=== PATIENT | male | born 1995 | race African-American/Black ===

== ENCOUNTER 2022-01-19 11:24 | Emergency (ER) | payer BC, OTHER ==
[~2022-01-19] VITALS: Ht 177.8 cm; Wt 111.1 kg
[~2022-01-19 11:24] MED LIST: DIPH1CRE; DIPH25TA26
[2022-01-19] MEDS ORDERED: KETOROLAC TROMETH 60MG/2ML VIAL IM ONE (13:00)
[2022-01-19 13:10] VITALS: BP 149/63
[2022-01-19] MEDS ORDERED: IBUP800T26 PO (14:32)
== END 2022-01-19 14:36 | disposition home or self-care (01) ==
LOC: ER 11:24
DX: G44.209 Tension-type headache, unspecified, not intractable (principal)
CPT/HCPCS: 96372; 99283; J1885